=== PATIENT | female | born 1965 | race Hispanic/Latino ===

== ENCOUNTER 2017-10-16 02:20 | Emergency (ER) | payer MEDICAID | END 2017-10-16 03:00 | disposition left against medical advice (07) | LOC: ED 02:20 | DX: Z53.21 Procedure and treatment not carried out due to patient leaving prior to being seen by health care provider (principal) ==

== ENCOUNTER 2018-07-27 13:38 | Emergency (ER) | payer MEDICAID ==
[2018-07-27] MEDS ORDERED: NORCO 10/325 PO ONE (15:07)
[2018-07-27] MEDS ORDERED: ZOFRAN ODT PO ONE (15:07)
--- NOTE | 2018-07-27 15:12 | Emergency Department Report ---
ED General Adult HPI - General Chief complaint: Back Pain/Injury Stated complaint: COUGH/BACK PAIN Time Seen by Provider: 07/27/18 14:33 Source: patient Mode of arrival: Ambulatory Limitations: No Limitations - Related Data Previous Rx's Medication Instructions Recorded Last Taken Type ALBUTEROL Inhaler(NF) [VENTOLIN 2 puff IH Q4HR PRN #1 inha 07/27/18 Unknown Rx Inhaler(NF)] Benzonatate [Tessalon Perles] 200 mg PO Q8HR #15 capsule 07/27/18 Unknown Rx HYDROcodone/ACETAMINOPHEN [Sears 1 each PO Q6HR PRN #12 tablet 07/27/18 Unknown Rx 5-325 Tablet] predniSONE [Deltasone] 50 mg PO QDAY #5 tab 07/27/18 Unknown Rx Allergies Allergy/AdvReac Type Severity Reaction Status Date / Time No Known Allergies Allergy Unverified 07/27/18 13:58 ED Review of Systems ROS: Stated complaint: COUGH/BACK PAIN Other details as noted in HPI Constitutional: denies: chills, fever Eyes: denies: eye pain, eye discharge, vision change ENT: denies: ear pain, throat pain Respiratory: denies: cough, shortness of breath, wheezing Cardiovascular: denies: chest pain, palpitations Endocrine: no symptoms reported Gastrointestinal: denies: abdominal pain, nausea, diarrhea Genitourinary: denies: urgency, dysuria, discharge Musculoskeletal: back pain. denies: joint swelling, arthralgia Skin: denies: rash, lesions Neurological: denies: headache, weakness, paresthesias Psychiatric: denies: anxiety, depression Hematological/Lymphatic: denies: easy bleeding, easy bruising ED Past Medical Hx - Past Medical History Previous Medical History?: Yes Hx Hypertension: Yes Hx Arthritis: Yes Hx Asthma: Yes Additional medical history: bronchitis. chronic back pain - Surgical History Past Surgical History?: Yes Additional Surgical History: cataract. thyroid surgery - Social History Smoking Status: Current Every Day Smoker Substance Use Type: None - Medications Home Medications: Home Medications Medication Instructions Recorded Confirmed Last Taken Type ALBUTEROL Inhaler(NF) [VENTOLIN 2 puff IH Q4HR PRN #1 inha 07/27/18 Unknown Rx Inhaler(NF)] Benzonatate [Tessalon Perles] 200 mg PO Q8HR #15 capsule 07/27/18 Unknown Rx HYDROcodone/ACETAMINOPHEN [Sears 1 each PO Q6HR PRN #12 tablet 07/27/18 Unknown Rx 5-325 Tablet] predniSONE [Deltasone] 50 mg PO QDAY #5 tab 07/27/18 Unknown Rx ED Physical Exam - General Limitations: No Limitations General appearance: alert, in no apparent distress - Head Head exam: Present: atraumatic, normocephalic - Eye Eye exam: Present: normal appearance, PERRL, EOMI - ENT ENT exam: Present: mucous membranes moist - Neck Neck exam: Present: normal inspection - Respiratory Respiratory exam: Present: normal lung sounds bilaterally. Absent: respiratory distress, wheezes, rales - Cardiovascular Cardiovascular Exam: Present: regular rate, normal rhythm. Absent: systolic murmur, diastolic murmur, rubs, gallop - GI/Abdominal GI/Abdominal exam: Present: soft, normal bowel sounds. Absent: distended, tenderness - Extremities Exam Extremities exam: Present: normal inspection - Back Exam Back exam: Present: normal inspection - Neurological Exam Neurological exam: Present: alert, oriented X3, CN II-XII intact - Psychiatric Psychiatric exam: Present: normal affect, normal mood - Skin Skin exam: Present: warm, dry, intact, normal color. Absent: rash ED Course Vital Signs 07/27/18 13:58 Temperature 99.2 F Pulse Rate 97 H Respiratory 18 Rate Blood Pressure 165/85 O2 Sat by Pulse 96 Oximetry ED Medical Decision Making - Medical Decision Making Discussed plan of care with patient Critical care attestation.: If time is entered above; I have spent that time in minutes in the direct care of this critically ill patient, excluding procedure time. ED Disposition Clinical Impression: Bronchitis, Back pain Disposition: DC-01 TO HOME OR SELFCARE Is pt being admited?: No Does the pt Need Aspirin: No Condition: Stable Instructions: Acute Bronchitis (ED), Low Back Strain (ED) Additional Instructions: return if worse Prescriptions: ALBUTEROL Inhaler(NF) [VENTOLIN Inhaler(NF)] 2 puff IH Q4HR PRN #1 inha PRN Reason: Wheezing Benzonatate [Tessalon Perles] 200 mg PO Q8HR #15 capsule HYDROcodone/ACETAMINOPHEN [Sears 5-325 Tablet] 1 each PO Q6HR PRN #12 tablet PRN Reason: pain predniSONE [Deltasone] 50 mg PO QDAY #5 tab Referrals: PRIMARY CARE, [Primary Care Provider] - 3-5 Days Time of Disposition: 15:14
[2018-07-27 15:23] VITALS: BP 161/84
== END 2018-07-27 15:22 | disposition home or self-care (01) ==
LOC: ED 13:38
DX: J45.909 Unspecified asthma, uncomplicated (principal); M54.9 Dorsalgia, unspecified; I10 Essential (primary) hypertension; M19.90 Unspecified osteoarthritis, unspecified site; G89.29 Other chronic pain; F17.200 Nicotine dependence, unspecified, uncomplicated; Z79.899 Other long term (current) drug therapy
CPT/HCPCS: 99282; Q0162

== ENCOUNTER 2018-08-10 17:46 | Emergency (ER) | payer MEDICAID ==
[2018-08-10 19:09] VITALS: BP 147/88
== END 2018-08-10 21:50 | disposition left against medical advice (07) ==
LOC: ED 17:46
DX: M54.5 Low back pain (principal); Z53.21 Procedure and treatment not carried out due to patient leaving prior to being seen by health care provider

== ENCOUNTER 2019-11-16 15:08 | Emergency (ER) | payer MEDICAID ==
[2019-11-16 17:43] VITALS: BP 124/82
--- NOTE | 2019-11-16 17:43 | Event Note ---
ED Screening Note Date of service: 11/16/19 Time: 17:41 ED Screening Note: I pulled my back out this morning. She bent over couldn't move. Denies any falls or trauma. Also c/o coughing This initial assessment/diagnostic orders/clinical plan/treatment(s) is/are subject to change based on patients health status, clinical progression and re- assessment by fellow clinical providers in the ED. Further treatment and workup at subsequent clinical providers discretion. Patient/guardian urged not to elope from the ED as their condition may be serious if not clinically assessed and managed. Initial orders include:
[2019-11-16] MEDS ORDERED: KETOROLAC 30 MG/1 ML INJ IM ONE (19:15)
--- NOTE | 2019-11-16 19:41 | Emergency Department Report ---
ED Back Pain/Injury HPI - General Chief Complaint: Back Pain/Injury Stated Complaint: BACK PAIN Time Seen by Provider: 11/16/19 19:14 Source: EMS Limitations: Physical Limitation - History of Present Illness Initial Comments: 54-year-old [place] female presents to the emergency room complaining of lower back pain that began after she bent down to feed her cat. Patient states that she had been raking in the yard and went inside to feed the cat when she bends down [place] her back went out. Patient states that the back pain is located in the lower back with radiation down her left leg. States she has a history of arthritis. Patient is taking nothing for her pain. Patient denies any fall or injury. Patient reports she does not have a primary care provider. MD Complaint: back pain - Related Data Previous Rx's Medication Instructions Recorded Last Taken Type ALBUTEROL Inhaler(NF) [VENTOLIN 2 puff IH Q4HR PRN #1 inha 07/27/18 Unknown Rx Inhaler(NF)] Benzonatate [Tessalon Perles] 200 mg PO Q8HR #15 capsule 07/27/18 Unknown Rx HYDROcodone/ACETAMINOPHEN [Grace 1 each PO Q6HR PRN #12 tablet 07/27/18 Unknown Rx 5-325 Tablet] predniSONE [Deltasone] 50 mg PO QDAY #5 tab 07/27/18 Unknown Rx Methocarbamol [Robaxin-750] 750 mg PO Q8H #20 tablet 09/09/18 Unknown Rx predniSONE [Prednisone] 50 mg PO DAILY #5 tablet 09/09/18 Unknown Rx traMADoL [Ultram] 50 mg PO Q6HR PRN #15 tablet 09/09/18 Unknown Rx Naproxen 500 mg PO BID PRN #20 tablet 11/16/19 Unknown Rx Allergies Allergy/AdvReac Type Severity Reaction Status Date / Time No Known Allergies Allergy Unverified 07/27/18 13:58 ED Review of Systems ROS: Stated complaint: BACK PAIN Other details as noted in HPI ED Past Medical Hx - Past Medical History Previous Medical History?: Yes Hx Hypertension: Yes Hx Arthritis: Yes Hx Asthma: Yes Additional medical history: bronchitis. chronic back pain. sciatica - Surgical History Past Surgical History?: Yes Additional Surgical History: cataract. thyroid surgery - Social History Smoking Status: Current Every Day Smoker Substance Use Type: None - Medications Home Medications: Home Medications Medication Instructions Recorded Confirmed Last Taken Type ALBUTEROL Inhaler(NF) [VENTOLIN 2 puff IH Q4HR PRN #1 inha 07/27/18 Unknown Rx Inhaler(NF)] Benzonatate [Tessalon Perles] 200 mg PO Q8HR #15 capsule 07/27/18 Unknown Rx HYDROcodone/ACETAMINOPHEN [Grace 1 each PO Q6HR PRN #12 tablet 07/27/18 Unknown Rx 5-325 Tablet] predniSONE [Deltasone] 50 mg PO QDAY #5 tab 07/27/18 Unknown Rx Methocarbamol [Robaxin-750] 750 mg PO Q8H #20 tablet 09/09/18 Unknown Rx predniSONE [Prednisone] 50 mg PO DAILY #5 tablet 09/09/18 Unknown Rx traMADoL [Ultram] 50 mg PO Q6HR PRN #15 tablet 09/09/18 Unknown Rx Naproxen 500 mg PO BID PRN #20 tablet 11/16/19 Unknown Rx ED Physical Exam - General Limitations: Physical Limitation ED Course Vital Signs 11/16/19 17:41 Temperature 98.4 F Pulse Rate 92 H Respiratory 16 Rate Blood Pressure 124/82 O2 Sat by Pulse 95 Oximetry ED Medical Decision Making - Medical Decision Making 54-year-old [place] female presents to the emergency room complaining of lower back pain that began after she bent down to feed her cat. Patient states that she had been raking in the yard and went inside to feed the cat when she bends down [place] her back went out. Patient states that the back pain is located in the lower back with radiation down her left leg. States she has a history of arthritis. Patient is taking nothing for her pain. Patient denies any fall or injury. Patient reports she does not have a primary care provider. Patient will be given a Toradol injection of 30 mg IM and a referral to Dr. Molina Critical care attestation.: If time is entered above; I have spent that time in minutes in the direct care of this critically ill patient, excluding procedure time. ED Disposition Clinical Impression: Low back strain, Back pain with left-sided sciatica Disposition: TO HOME OR SELFCARE Is pt being admited?: No Does the pt Need Aspirin: No Condition: Stable Instructions: Lumbar Radiculopathy (ED), Muscle Strain (ED) Prescriptions: Naproxen 500 mg PO BID PRN #20 tablet PRN Reason: Pain , Severe (7-10) Referrals: PRIMARY CAREMD [Primary Care Provider] - 3-5 Days SANTI MOLINA MD [Staff Physician] - 3-5 Days
== END 2019-11-16 19:55 | disposition home or self-care (01) ==
LOC: ED 15:08
DX: S39.012A Strain of muscle, fascia and tendon of lower back, initial encounter (principal); M54.42 Lumbago with sciatica, left side; I10 Essential (primary) hypertension; M19.90 Unspecified osteoarthritis, unspecified site; J45.909 Unspecified asthma, uncomplicated; F17.200 Nicotine dependence, unspecified, uncomplicated; Z79.899 Other long term (current) drug therapy; X58.XXXA Exposure to other specified factors, initial encounter; Y93.89 Activity, other specified; Y92.89 Other specified places as the place of occurrence of the external cause; Y99.8 Other external cause status
CPT/HCPCS: 96372; 99283; J1885